=== PATIENT | male | born 1975 | race Caucasian/White ===

== ENCOUNTER 2020-01-28 06:29 | Emergency (ER) | payer OTHER, SELFPAY ==
[2020-01-28 06:34] VITALS: BP 122/79; PULSE 102; RESP 16; TEMP 37.6; O2SAT 95; BMI 34.8
--- NOTE | 2020-01-28 06:55 | HMH.EDGENADL ---
ED Disposition Clinical Impression: Contact dermatitis Qualifiers: Contact dermatitis type: allergic Contact dermatitis trigger: non-food plants Qualified Code(s): L23.7 - Allergic contact dermatitis due to plants, except food Cellulitis Qualifiers: Site of cellulitis: periorbital Laterality: left Qualified Code(s): L03.213 - Periorbital cellulitis Disposition: Home, Self-Care Condition on Discharge: Good Instructions: DI for Skin Abscess Prescriptions: Amoxicillin/Potassium Clav [Augmentin 875-125 Tablet] 1 tab PO Q12H 7 Days #14 tab Prescription Printed Referrals: Tung Winston [Primary Care Provider] - - Critical Care Critical Care Time: No Attestation: On 01/28/20, the high probability of a clinically significant, sudden or life threatening deterioration of the following system(s) required my full and direct attention, intervention and personal management. The time I documented below is in addition to time spent performing reported procedures but includes the following listed in this critical care notation. Medical Decision Making - Riley Inquiry Pt receiving controlled substance: No Vital Signs: 01/28/20 06:34 Temperature 99.6 F Temperature Source Oral Pulse Rate [Right Brachial] 102 H Respiratory Rate 16 Blood Pressure [Right Arm] 122/79 Blood Pressure Mean [Right Arm] 93 Blood Pressure Source [Right Arm] Automatic Cuff Blood Pressure Position [Right Arm] Sitting 02 Sat by Pulse Oximetry 95 Oxygen Delivery Method Room Air Orders (Tests/Meds): ED MEDICATIONS Discontinued Medications Generic Name Dose Route Start Last Admin Trade Name Freq PRN Reason Stop Dose Admin Dexamethasone 10 mg 01/28/20 07:01 Decadron 4mg Tablet PO 01/28/20 07:02 ONCE ONE Fluorescein Sodium 1 mg 01/28/20 07:01 Fluorescein Sodium 1mg Strip OP 01/28/20 07:02 ONCE ONE Tetracaine HCl 1 ml 01/28/20 07:01 Tetracaine 0.5% Ophth Solution 15ml OP 01/28/20 07:02 ONCE ONE Medical Decision Narrative: 44-year-old male who presents with recent history of a contact dermatitis to the face but acutely worsened over the last day due to being outside working in the yard and sweating significantly. Patient woke up this morning with swelling around his left eye no changes in vision with mild watery discharge. Patient has no pain with range of motion of the eye and suspect this is likely a periorbital cellulitis due to the associated breaks in the skin with the contact dermatitis. Fluorescein staining at bedside demonstrates a small corneal abrasion no dendritic lesions or other abnormalities. Patient will be given dexamethasone and erythromycin ointment as well as a prescription for Augmentin to treat periorbital cellulitis. Patient will also be sent for follow-up with ophthalmology of his choosing with recommendations to contact [facility]. She was discharged in good condition with appropriate return precautions. General Adult HPI - General Chief complaint: Skin/Abscess/Foreign Body Stated complaint: Swelling on left side of face in eye [place] Time Seen by Provider: 01/28/20 06:50 Mode of Arrival: Ambulatory Source of Information: Patient Limitations: No Limitations Description of Symptoms (Recalled from ER Triage Doc. by RN): report having [place] to face. Red raised rash to face. Left side of face,red and swollen with pustules present - History of Present Illness Onset (ago): day(s) Location: face Severity: mild Severity scale (1-10): 3 Quality: burning Relieving factors: none Exacerbating factors: none - Related Data Home Medications Medication Instructions Recorded Confirmed Loratadine [Claritin 10mg 10 mg PO DAILY 01/28/20 01/28/20 Tablet] Previous Rx's Medication Instructions Recorded Amoxicillin/Potassium Clav 1 tab PO Q12H 7 Days #14 tab 01/28/20 [Augmentin 875-125 Tablet] Allergies Allergy/AdvReac Type Severity Reaction
[2020-01-28 07:43] VITALS: BP 122/84; PULSE 80; RESP 18; TEMP 37.6; O2SAT 95
== END 2020-01-28 07:44 | disposition home or self-care (01) ==
PROVIDERS: Emergency Provider Student in an Organized Health Care Education/Training Program; PCP Family Medicine
DX: L23.7 Allergic contact dermatitis due to plants, except food (principal); L03.213 Periorbital cellulitis
CPT/HCPCS: 99281

== ENCOUNTER 2020-01-30 16:38 | Emergency (ER) | payer OTHER, SELFPAY ==
[2020-01-30 16:56] VITALS: BP 146/82; PULSE 78; RESP 20; TEMP 37.4; O2SAT 98; BMI 34.8
--- NOTE | 2020-01-30 17:42 | HMH.EDUTC ---
[facility] [place] Disposition Clinical Impression: Contact dermatitis Qualifiers: Contact dermatitis type: allergic Contact dermatitis trigger: unspecified trigger Qualified Code(s): L23.9 - Allergic contact dermatitis, unspecified cause Disposition: Home, Self-Care Condition on Discharge: Good Instructions: Contact Dermatitis, DI for Contact Dermatitis Additional Instructions: Stop the eye ointment if it seems like its irritating your eye more. Try to stay cool and out of the sunlight for the next few days. Keep taking the augmentin. Start the bactrim that i sent to your pharmacy. Start the oral steroids (prednisone) that I sent to your pharmacy. Take them as directed on the label. The dose will taper down over 9 days. Follow up with opthalmology as instructed by the ER physician when you were in the ER. Follow up with your regular doctor. GO STRAIGHT TO THE ER FOR ANY WORSENING SYMPTOMS OR CONCERNS Prescriptions: Sulfamethoxazole/Trimethoprim [Bactrim DS tablet] 1 each PO BID 10 Days #20 tab Transmission Status: Received by [facility] Mupirocin [Bactroban 2% Ointment 22gm tube] 1 applicatio TP TID 7 Days #1 tube Transmission Status: Received by [facility] predniSONE [Deltasone 10mg tablet] 10 mg PO DAILY 9 Days #21 tab Transmission Status: Received by [facility] Referrals: Tung Winston [Primary Care Provider] - Forms: Work/School Release Time of Disposition: 17:46 Medical Decision Making - Medical Records Medical records reviewed: No: I reviewed the patient's medical records. - Riley Inquiry Pt receiving controlled substance: No Vital Signs: 01/30/20 16:56 01/30/20 17:48 Temperature 99.4 F 99.4 F Temperature Source Oral Pulse Rate 78 Pulse Rate [Left Brachial] 78 Respiratory Rate 20 20 Blood Pressure 146/82 H Blood Pressure [Left Arm] 146/82 H Blood Pressure Mean [Left Arm] 103 Blood Pressure Source [Left Arm] Automatic Cuff Blood Pressure Position [Left Arm] Sitting 02 Sat by Pulse Oximetry 98 Oxygen Delivery Method Room Air Orders (Tests/Meds): ED MEDICATIONS Discontinued Medications Generic Name Dose Route Start Last Admin Trade Name Freq PRN Reason Stop Dose Admin Ceftriaxone Sodium 1 gm 01/30/20 17:02 01/30/20 17:16 Rocephin 1gm Vial IM 01/30/20 17:03 1 gm ONCE ONE Administration Protocol Lidocaine HCl 0 ml 01/30/20 17:02 01/30/20 17:16 Lidocaine 1% 10ml Mdv IM 01/30/20 17:03 2.1 ml ONCE ONE Administration Methylprednisolone Sodium Succinate 125 mg 01/30/20 17:02 01/30/20 17:16 Solu-Medrol 125mg/2ml Vial IM 01/30/20 17:03 125 mg ONCE ONE Administration [facility] [place] HPI - General Stated complaint: Possible allergic reaction to med Time Seen by Provider: 01/30/20 17:00 Mode of Arrival: Ambulatory Source of Information: Patient, Significant Other Limitations: No Limitations Description of Symptoms (Recalled from Triage Doc. by RN): PATIENT STATES ON WEDNESDAY HE GOT INTO POISON [place]. ON WEDNESDAY HE WAS SEEN IN ER FOR SWELLING AND REDNESS TO LEFT SIDE OF FACE, AND WAS STARTED ON AUGMENTIN AND ERYTHROMYCIN EYE OINTMENT. TODAY HE STATES HIS SWELLING IS WORSE AND IS STARTING TO GO TO HIS RIGHT SIDE OF HIS FACE. DENIES ANY DIFFICULTY BREATHING HEENT Symptoms (Recalled from RN notes): Yes Resp Symptoms (Recalled from RN notes): No Skin Symptoms (Recalled from RN notes): Yes MS Symptoms (Recalled from RN notes): No Functional Status (Recalled from RN notes): WNL - History of Present Illness Provider Complaint: He is having rash and swelling of the left side of his face. - Related Data Home Medications Medication Instructions Recorded Confirmed Loratadine [Claritin 10mg 10 mg PO DAILY 01/28/20 01/28/20 Tablet] Previous Rx's Medication Instructions Recorded Amoxicillin/Potassium Clav 1 tab PO Q12H 7 Days #14 tab 01/28/20 [Augmentin 875-125 Tablet] Mupirocin [Bactroban
[2020-01-30 17:48] VITALS: BP 146/82; PULSE 78; RESP 20; TEMP 37.4; O2SAT 98
== END 2020-01-30 17:50 | disposition home or self-care (01) ==
PROVIDERS: Emergency Provider Nurse Practitioner Family; PCP Family Medicine
DX: L23.9 Allergic contact dermatitis, unspecified cause (principal)
CPT/HCPCS: 96372; 99201

== ENCOUNTER → 2021-02-10 17:00 | Outpatient (CLI) | payer OTHER, SELFPAY | PROVIDERS: PCP Family Medicine; Visit Provider Nurse Practitioner | DX: Z20.822 Contact with and (suspected) exposure to COVID-19 (principal) | CPT/HCPCS: C9803; U0003; U0005 ==

== ENCOUNTER → 2021-02-26 16:15 | Outpatient (CLI) | payer OTHER, SELFPAY | PROVIDERS: PCP Family Medicine; Visit Provider Nurse Practitioner | DX: Z20.822 Contact with and (suspected) exposure to COVID-19 (principal) | CPT/HCPCS: C9803; U0003; U0005 ==